=== PATIENT | male | born 1955 | race Caucasian/White ===

== ENCOUNTER 2018-02-07 02:45 | Emergency (ER) | payer MEDICARE ==
[2018-02-07 02:51] VITALS: BP 179/108
--- NOTE | 2018-02-07 02:51 | ER Report ---
History and Physical Time Seen By MD: 02:51 HPI/ROS CHIEF COMPLAINT: Itching,? Insect bites HISTORY OF PRESENT ILLNESS: 62-year-old male presents ambulatory to the ER complaining of severe itching so bad he is unable to sleep. Patient's been staying in [facility]. He thinks it's infested with bug bites. He has spots all over his body. He's been itching severely. He has scabs and abrasions from the severity of his itching. Patient states his 14-year-old daughter also has the same thing. His was sleeping with him. Doesn't appear to be affected. Allergies: Coded Allergies: No Known Drug Allergies (Unverified , 02/07/18) Home Meds Active Scripts Prednisone 10 Mg Tab (PREDNISONE 10 MG TAB) 10 Mg Tablet, 10 MG PO QDAY Y for prevention of allergic reactio, #6 2 tabs daily for 2 days 1 tab daily for 2 days Prov:HEATHER RIOSMartha Villalobos DO 02/07/18 Reviewed Nurses Notes: Yes Old Medical Records Reviewed: Yes Constitutional Vital Sign - Last 24 Hours 02/07/18 02:51 Temp 98.1 Pulse 70 Resp 20 B/P (MAP) 179/108 Pulse Ox 96 O2 Delivery Room Air Physical Exam General Appearance: The patient is alert, has no immediate need for airway protection and no current signs of toxicity. Vital signs stable, afebrile HEENT: Pupils equal and round no injection. Oropharynx without redness or exudate, mucous. Membranes are moist Respiratory: Chest is non tender, lungs are clear to auscultation. Cardiac: regular rate and rhythm Gastrointestinal: Abdomen is soft and non tender, no masses, bowel sounds normal. Musculoskeletal: Neck: Neck is supple and non tender. Extremities have full range of motion and are non tender. Skin: Diffuse erythematous hives approximately 2 cm with central scabbing from itching DIFFERENTIAL DIAGNOSIS: After history and physical exam differential diagnosis was considered for insect bites, hives, urticaria, eczema Medical Decision Making ED Course/Re-evaluation ED Course Patient was admitted to an examination room. H&P was done. The differential diagnoses was considered. On clinical examination. Patient with the appearance of insect bites with allergic reaction focally. He'll be treated with oral prednisone. He is advised to take Benadryl for his itching. Decision to Disposition Date: Feb 07, 2018 Decision to Disposition Time: 03:04 Depart Departure Latest Vital Signs Vital Signs Date Time Temp Pulse Resp B/P (MAP) Pulse Ox O2 Delivery O2 Flow Rate FiO2 02/07/18 02:51 98.1 70 20 179/108 96 Room Air Impression: Primary Impression: Insect bite Additional Impression: Allergic reaction Condition: Improved Disposition: HOME OR SELF-CARE New Scripts Prednisone 10 Mg Tab (PREDNISONE 10 MG TAB) 10 Mg Tablet 10 MG PO QDAY Y for prevention of allergic reactio, #6 2 tabs daily for 2 days 1 tab daily for 2 days Prov: GIOVANNI RIOS DO 02/07/18 Patient Instructions: General Allergic Reaction (ED), Insect Bite or Sting (ED) Additional Instructions: Take Benadryl 25 mg every 6-8 hours as needed for itching Problem Qualifiers Primary Impression: Insect bite Encounter type: initial encounter Qualified Codes: W57.XXXA - Bitten or stung by nonvenomous insect and other nonvenomous arthropods, initial encounter Additional Impression: Allergic reaction Encounter type: initial encounter Qualified Codes: T78.40XA - Allergy, unspecified, initial encounter GIOVANNI RIOS DO Feb 07, 2018 02:51
[2018-02-07] MEDS ORDERED: predniSONE 20 MG TAB PO ONE (03:05)
[2018-02-07] MEDS ORDERED: diphenhydrAMINE 25 MG CAP TH PO ONE (03:05)
[2018-02-07] MEDS ORDERED: PRED-1 PO (03:07)
== END 2018-02-07 03:24 | disposition home or self-care (01) ==
LOC: ER 03:07
DX: T78.40XA Allergy, unspecified, initial encounter (principal); W57.XXXA Bitten or stung by nonvenomous insect and other nonvenomous arthropods, initial encounter
CPT/HCPCS: 99283; J7512